=== PATIENT | female | born 1965 | race Two or more races ===

== ENCOUNTER 2021-06-28 05:04 | Emergency (ER) | payer MEDICAID, OTHER ==
[~2021-06-28] VITALS: Ht 154.9 cm; Wt 65.0 kg
[2021-06-28] MEDS ORDERED: KETOROLAC 60MG/2ML VIAL IM STA (06:01)
[2021-06-28] MEDS ORDERED: DICLOFENAC SODIUM 75MG DR (EC) TABLET PO ONE (06:15)
[2021-06-28] MEDS ORDERED: DICL50TA9 MT (10:40)
[2021-06-28 10:45] VITALS: BP 157/109
== END 2021-06-28 10:50 | disposition home or self-care (01) ==
LOC: ER 05:04
DX: M19.041 Primary osteoarthritis, right hand (principal); E11.9 Type 2 diabetes mellitus without complications; K21.9 Gastro-esophageal reflux disease without esophagitis
CPT/HCPCS: 73080; 73090; 73110; 73130; 96372; 99285; J1885

== ENCOUNTER 2022-12-10 21:07 | Emergency (ER) | payer MEDICAID, OTHER ==
[~2022-12-10] VITALS: Ht 154.9 cm; Wt 64.2 kg
[~2022-12-10 21:07] MED LIST: DICL50TA9 MT
[2022-12-10 23:02] LABS: BASOPHILS % 0.5 % (0.0-2.0); EOSINOPHILS % 1.3 % (0.0-5.0); HEMOGLOBIN. 12.5 g/dL (12.0-16.0); LYMPHOCYTES % 29.7 % (20.0-50.0); MEAN CORPUSCULAR HEMOGLOBIN 30.7 pg (28.0-32.0); MEAN PLATELET VOLUME 8.2 fl (7.4-10.4); MONOCYTES % 7.2 % (2.0-8.0); NEUTROPHILS % 61.3 % (40.0-76.0); PLATELET 293 x1000/uL (130-400); RED BLOOD CELL COUNT 4.07 mill/uL (4.2-5.4); RED CELL DISTRIBUTION WIDTH 14.6 % (11.6-14.6)
[2022-12-10 23:09] LABS: CHLORIDE 109 mEq/L (98-107)
[2022-12-10 23:11] LABS: INR 0.9
[2022-12-11] MEDS ORDERED: ALBUTEROL (0.083%) 2.5MG/3ML NEB HHN STA (01:49)
[2022-12-11] MEDS ORDERED: IPRATROPIUM BROMIDE (0.02%) 0.5MG/2.5ML NEB HHN STA (01:49)
[2022-12-11] MEDS ORDERED: ENALAPRIL 2.5MG/2ML VIAL 2ML IV ONE (02:00)
[2022-12-11] MEDS ORDERED: ENALAPRIL 1.25MG/ML VIAL 1ML IV NR (02:30)
[2022-12-11] MEDS ORDERED: PRED10TA MT (05:10)
[2022-12-11] MEDS ORDERED: DOXY100T2 MT (05:10)
[2022-12-11] MEDS ORDERED: ALBU6.7H3 INH (05:10)
[2022-12-11 05:15] VITALS: BP 154/97
== END 2022-12-11 05:30 | disposition home or self-care (01) ==
LOC: ER 21:07
DX: J40 Bronchitis, not specified as acute or chronic (principal); I10 Essential (primary) hypertension; E11.9 Type 2 diabetes mellitus without complications; Z98.890 Other specified postprocedural states
CPT/HCPCS: 36415; 71045; 80053; 83880; 84484; 85025; 85610; 93005; 94640; 96374; 99285; J3490; Z7610

== ENCOUNTER 2024-01-18 03:02 | Emergency (ER) | payer OTHER ==
[~2024-01-18] VITALS: Ht 154.9 cm; Wt 65.0 kg
[~2024-01-18 03:02] MED LIST changes: +ALBU6.7H3 INH; +DOXY100T2 MT; +PRED10TA MT
[2024-01-18 03:26] VITALS: O2SAT 100
[2024-01-18 03:50] LABS: BASOPHILS % 0.5 % (0.0-2.0); EOSINOPHILS % 0.4 % (0.0-5.0); HEMATOCRIT. 38.5 % (36.0-48.0); HEMOGLOBIN. 12.8 g/dL (12.0-16.0); LYMPHOCYTES % 18.9 % (20.0-50.0); MEAN CORPUSCULAR HEMOGLOBIN 30.2 pg (28.0-32.0); MEAN CORPUSCULAR HGB CONC 33.3 g/dL (31.0-37.0); MEAN CORPUSCULAR VOLUME 90.7 fL (81.0-99.0); MEAN PLATELET VOLUME 7.6 fl (7.4-10.4); MONOCYTES % 3.8 % (2.0-8.0); NEUTROPHILS % 76.4 % (40.0-76.0); PLATELET 449 x1000/uL (130-400); RED BLOOD CELL COUNT 4.25 mill/uL (4.2-5.4); RED CELL DISTRIBUTION WIDTH 14.4 % (11.6-14.6); WHITE BLOOD COUNT 11.1 x1000/uL (4.5-11.0)
[2024-01-18 03:58] LABS: CHLORIDE 102 mEq/L (98-107); POTASSIUM 4.3 mEq/L (3.5-5.1); SODIUM 135 mEq/L (136-145)
[2024-01-18 03:59] LABS: CALCIUM 9.9 mg/dL (8.7-10.4); CARBON DIOXIDE 28 mEq/L (21-32)
[2024-01-18 04:04] LABS: CREATININE 0.8 mg/dL (0.6-1.0); GLUCOSE 305 mg/dL (70-105); UREA NITROGEN BLOOD 15 mg/dL (9-23)
[2024-01-18 04:06] LABS: ALANINE AMINOTRANSFERASE 20 IU/L (10-49); ALBUMIN 4.6 g/dL (3.2-4.8); ASPARTATE AMINOTRANSFERASE 12 IU/L (<34); BILIRUBIN TOTAL 0.5 mg/dL (0.1-1.0)
[2024-01-18] MEDS ORDERED: IPRATROPIUM/ALBUTEROL 0.5-3(2.5)MG/3ML NEB HHN ONE (06:00)
[2024-01-18] MEDS ORDERED: ASPIRIN 325MG EC TABLET PO ONE (06:00)
[2024-01-18] MEDS ORDERED: METHYLPREDNISOLONE SOD SUCC 125MG/2ML (ACT-O-VIAL) IV ONE (06:00)
[2024-01-18] MEDS ORDERED: HYDRALAZINE 20MG/ML VIAL IV ONE (06:30)
[2024-01-18 06:36] LABS: TROPONIN I HIGH SENSITIVITY < 4 ng/L (3.0-34)
[2024-01-18 07:45] VITALS: PULSE 80; RESP 20
[2024-01-18] MEDS ORDERED: IPRATROPIUM/ALBUTEROL 0.5-3(2.5)MG/3ML NEB HHN NR (07:45)
[2024-01-18] MEDS: HYDRALAZINE 20MG/ML VIAL IV NR (08:15)
[2024-01-18] MEDS: METHYLPREDNISOLONE SOD SUCC 125MG/2ML (ACT-O-VIAL) IV NR (08:15)
[2024-01-18] MEDS: ASPIRIN 325MG EC TABLET PO NR (09:05)
[2024-01-18 09:47] LABS: TROPONIN I HIGH SENSITIVITY < 4 ng/L (3.0-34)
[2024-01-18] MEDS ORDERED: ALBU90AE INH (11:31)
[2024-01-18] MEDS ORDERED: P50 MT (11:31)
[2024-01-18] MEDS ORDERED: LOSA50TA41 MT (11:31)
[2024-01-18 12:26] VITALS: BP 124/87; PULSE 78; RESP 20; TEMP 97.4
== END 2024-01-18 12:36 | disposition home or self-care (01) ==
LOC: ER 03:02
DX: J45.998 Other asthma (principal); I10 Essential (primary) hypertension; E11.9 Type 2 diabetes mellitus without complications
CPT/HCPCS: 80053; 83880; 85025; 84484; 36415; 71045; 94640; 93005; 96374; 96375; 99285; J0360; J2930; Z7610 ×5